=== PATIENT | male | born 1990 | race Caucasian/White ===

== ENCOUNTER 2016-08-10 00:19 | Emergency (ER) | payer OTHER ==
[~2016-08-10] VITALS: Ht 170.2 cm; Wt 173.3 kg
[2016-08-10 00:25] VITALS: BP 103/59
--- NOTE | 2016-08-10 00:32 | NUR ---
PT TAKEN TO [facility]
--- NOTE | 2016-08-10 00:36 | NUR ---
Dr. Burgess evaluating patient
[2016-08-10] MEDS ORDERED: DEXAMETHASONE 4 MG TAB PO ONE (00:40)
[2016-08-10 01:00] VITALS: BP 103/59
--- NOTE | 2016-08-10 01:00 | NUR ---
Patient discharged with v/s stable. Written and verbal after care instructions given and explained. Patient alert, oriented and verbalized understanding of instructions. Ambulatory with steady gait. All questions addressed prior to discharge. ID band removed. Patient advised to follow up with PMD. Rx of Amoxicillin and Flonase given. Patient educated on indication of medication including possible reaction and side effects. Opportunity to ask questions provided and answered.
== END 2016-08-10 01:00 | disposition home or self-care (01) ==
LOC: MED 00:19
DX: J32.9 Chronic sinusitis, unspecified (principal)
CPT/HCPCS: 99283